=== PATIENT | male | born 1990 | race Caucasian/White ===

== ENCOUNTER 2018-05-14 15:30 | Emergency (ER) | payer BC ==
[~2018-05-14] VITALS: Ht 185.4 cm; Wt 88.5 kg
[2018-05-14 15:53] VITALS: BP 130/61
--- NOTE | 2018-05-14 17:47 | NUR ---
PATIENT PRESENTS TO ED WITH injured left 2nd/3rd digits while working on a transmission yesterday--caught fingers between a gear when in closed . PT STATES . DENIES N/V/D; SKIN IS PINK/WARM/DRY; AAOX4 WITH EVEN AND STEADY GAIT; LUNGS CLEAR BL; HR EVEN AND REGULAR; PT DENIES ANY FEVER, CP, SOB, OR COUGH AT THIS TIME; PATIENT STATES PAIN OF 5/10 AT THIS TIME; VSS; PATIENT POSITIONED FOR COMFORT; HOB ELEVATED; BEDRAILS UP X2; BED DOWN. ER MD MADE AWARE OF PT STATUS.
[2018-05-14] MEDS ORDERED: KETOROLAC 60 MG/2 ML VIAL IM ONE (18:15)
[2018-05-14] MEDS ORDERED: MORPHINE SULFATE 2 MG/ML SYR IM ONE (18:15)
[2018-05-14] MEDS ORDERED: BACITRACIN OINT 500 UNITS/GM PKT TP ONE (18:55)
[2018-05-14 19:00] VITALS: BP 127/75
== END 2018-05-14 19:00 | disposition home or self-care (01) ==
LOC: MED 15:30
DX: S60.132A Contusion of left middle finger with damage to nail, initial encounter (principal); W23.0XXA Caught, crushed, jammed, or pinched between moving objects, initial encounter; Y93.89 Activity, other specified; Y92.89 Other specified places as the place of occurrence of the external cause; Y99.8 Other external cause status
CPT/HCPCS: 11740; 73130; 96372; 99284; J1885; J2270